=== PATIENT | female | born 1980 | race Caucasian/White ===

== ENCOUNTER 2017-01-16 15:52 | Inpatient (IN) | payer OTHER ==
--- NOTE | ~2017-01-16 | DS ---
Discharge Summary [facility] [address] [facility] [place]. [address] NAME: KATERINA ALCALA : 76 STATUS : DIS IN PAT#: [id number] AGE: 36 ADM/REG DATE : 01/16/17 MR#: [id number] REPORT SERV DATE: 01/19/17 DICTATED BY: LENNY ROBERTS DATE: 01/18/17 REPORT STATUS : Draft TRANSCRIBED BY: MODL DATE: 01/18/17 ADMISSION DATE: 01/16/2017 DISCHARGE DATE: 01/18/2017 DISCHARGE DIAGNOSES: 1. Diabetic ketoacidosis/diabetes mellitus type 2. 2. Hypothyroidism. 3. History of seizures. 4. Pneumomediastinum ruled out. CONSULTATIONS: Cardiovascular Surgery, and Romeo Hurtado NP 01/16/2017. IMAGIN. Chest x-ray, 01/16/2017. Impression: No acute cardiopulmonary abnormality. 2. Radiation water soluble contrast, 01/16/2017. Impression: No evidence of esophageal obstruction or contrast leakage. 3. Chest x-ray, 01/17/2017. Impression: No acute cardiopulmonary abnormality. LABORATORY DATA: WBC is 5.9, hemoglobin 11.8, hematocrit 32.6, and platelet count 210. Sodium is 135, potassium is 4.0, chloride is 100, CO2 is 20, BUN is 8, creatinine is 0.83, glucose is 528, magnesium is 1.7, calcium is 8.5, and phosphorus is 2.9. HOSPITAL COURSE: Please refer to history and physical dictated by Dr. Gregorio Galdamez on 01/16/2017 as well as consultation note for complete admission details. This patient is a 36-year-old female, who presented with a history of diabetes mellitus type 2, hypothyroidism, history of seizures. This patient was transferred on DKA with possible pneumomediastinum from [place], [place]. History prior to admission was, the patient stated having abdominal cramping and pain associated with nausea and vomiting. She presented at [facility], the patient was admitted. Imaging was obtained, which did show a possible pneumomediastinum with no evidence of esophageal or tracheal injury. The patient was hemodynamically stable and transferred to [facility]. She was initially started on insulin drip as well as D5 half-normal saline. The pH was 7.24, the patient was placed on diabetic ketoacidosis protocol. Baseline labs were obtained which did show diabetic ketoacidosis. Her iron gap was closed. CT imaging did show possible gastritis. Consult was placed to Dr. Barlow regarding possible pneumomediastinum. This was ruled out. Hemoglobin A1c was obtained, which was 12.1. Diabetic education was also consulted, the patient did decline as well as spouse. The patient was weaned off insulin drip. At this time, the patient is voicing understanding regarding diet and medications. She is requesting to be discharged home stating that she has a 12-hour drive, saying she already has a followup with her primary care regarding this hospitalization. The patient is in hemodynamically stable condition and will be discharged home. DISCHARGE MEDICATIONS: 1. Colace 100 mg p.o. twice daily p.r.n. Discharge Summary [address] [address] NAME: KATERINA ALCLAA : 76 STATUS : DIS IN PAT#: [id number] AGE: 36 ADM/REG DATE : 01/16/17 MR#: [id number] REPORT SERV DATE: 01/19/17 DICTATED BY: LENNY ROBERTS DATE: 01/18/17 REPORT STATUS : Draft TRANSCRIBED BY: ROBERT DATE: 01/18/17 2. Levemir 45 units subcu at bedtime. 3. NovoLog sliding scale. 4. NovoLog 10 units subcu with meals. 5. Synthroid 175 mcg p.o. daily. 6. Victoza pen 18 mg/3 mL 1.8 mg subcu daily. 7. Percocet 5 mg one p.o. every 4 hours p.r.n. for pain, #10. This discharge took greater than 30 minutes. DICTATED BY: WESTNO Germain/ROBERT Lenny Roberts NP / [id number] CC: Dar Flores M.D.
--- NOTE | ~2017-01-16 | CN ---
Consultation Report [facility] [address] [place]. [address] NAME: KATERINA ALCALA : 76 STATUS : ADM IN PAT#: [id number] AGE: 36 ADM/REG DATE : 01/16/17 MR#: [id number] REPORT SERV DATE: 01/16/17 DICTATED BY: ARTEMIO LOPEZ DATE: 01/16/17 REPORT STATUS : Draft TRANSCRIBED BY: MODL DATE: 01/16/17 CONSULT REPORT DATE OF CONSULTATION: 01/16/2017 REASON FOR CONSULTATION: Questionable pneumomediastinum. HISTORY OF PRESENT ILLNESS: This is a pleasant 36-year-old female, who lives in [place] and has been in [place], [place], visiting some family. She presented to the emergency room at [facility] with complaints of flank pain and nausea and vomiting. Her blood glucose in the emergency room was 720. She was admitted for diabetic ketoacidosis. She had a CT scan of her abdomen and pelvis which showed some questionable bowel wall thickening consistent with colitis and questionable pneumomediastinum with free air in the chest and possible esophageal tear. We spoke to the hospitalist at [facility] who reviewed the CT scan with us over the phone. The patient has been stable and was transferred here for evaluation of what was thought to be an esophageal tear. When the patient arrived, she had a chest x-ray, report which showed a chest x-ray performed today showed no lucency over the mediastinum which was apparent yesterday suggesting possible resolution of the pneumomediastinum. The patient has stable vital signs, and labs have improved with noted as below. Family is with her at the bedside. She has no complaints of chest pain, shortness of breath, abdominal pain, nausea, or vomiting. Her only complaint now is continued flank pain. PAST MEDICAL HISTORY: Significant for type 2 diabetes mellitus, hypothyroidism, and seizures. SOCIAL HISTORY: She lives in [place]. She is , with children, unemployed. FAMILY HISTORY: Reviewed and noncontributory. PAST SURGICAL HISTORY: Prior hysterectomy and removal of wisdom teeth. ALLERGIES: NO KNOWN DRUG ALLERGIES. HOME MEDICATIONS: She is on Synthroid, Victoza, Levemir, and NovoLog insulin. REVIEW OF SYSTEMS: A 10-point review of systems was obtained and is negative other than HPI. PHYSICAL EXAMINATION: VITAL SIGNS: From today temperature 99.5, heart rate 87, blood pressure 99/65, respiratory rate 16, and O2 saturation 100% on room air. GENERAL: Pleasant female, in no acute distress. Consultation Report [place] [address] [place]. [address] NAME: KATERINA ALCALA : 76 STATUS : ADM IN PAT#: [id number] AGE: 36 ADM/REG DATE : 01/16/17 MR#: [id number] REPORT SERV DATE: 01/16/17 DICTATED BY: ARTEMIO LOPEZ DATE: 01/16/17 REPORT STATUS : Draft TRANSCRIBED BY: ROBERT DATE: 01/16/17 PSYCHIATRIC: Flat affect, but talkative, pleasant. NEUROLOGIC: Alert and oriented x3. Pupils are equal, round, reactive to light and accommodation. Exhibits equal strength in bilateral upper extremities and bilateral lower extremities. HEENT: Head normocephalic and atraumatic. Sclerae clear. Nose midline with no abnormalities. Good dentition overall. NECK: Supple with no thyromegaly or lymphadenopathy. LUNGS: Clear to auscultation bilaterally with normal effort. CARDIAC: S1, S2. No murmurs, rubs, or gallops. Carotids on auscultation with no obvious bruits. ABDOMEN: Soft, nontender, with active bowel sounds. EXTREMITIES: Free of cyanosis, clubbing, or edema. LABORATORY DATA: From [facility] earlier today, white blood cell count 19.9, hemoglobin 13.1, hematocrit 39, and platelets 297. Sodium 142, potassium 3.8, chloride 108, bicarbonate 11, BUN 12, creatinine 0.8, glucose 149, INR 1.2. ASSESSMENT AND PLAN: This is a 36-year-old female with a history of type 2 diabetes, admitted to [facility] 2 days ago with nausea and vomiting. CT scan of the abdomen and pelvis showed possible colitis with questionable pneumomediastinum, concerning for esophageal tear; has been on treatment with DKA with improvement in her labs. The patient was transferred here for evaluation of pneumomediastinum. Prior to her transfer, she had a chest x-ray, which showed possible resolution of the pneumomediastinum. We will send her for a stat Gastrografin swallow evaluation to evaluate for esophageal tear; if this is negative, then she can continue on treatment for the DKA and colitis with no surgical needs. I discussed the plan of care with Dr. Galdamez who will be the attending. I updated the family at the bedside. DANIAL/ROBERT Artemio Lopez NP / [id number] CC: Gregorio Galdamez MD
--- NOTE | ~2017-01-16 | HP ---
History And Physical [place] [id number] [facility] [place]. [address] NAME: KATERINA ALCALA : 76 STATUS : ADM IN [facility]#: [id number] AGE: 36 ADM/REG DATE : 01/16/17 MR#: [id number] REPORT SERV DATE: 01/16/17 DICTATED BY: SAGAR GALDAMEZ DATE: 01/16/17 REPORT STATUS : Draft TRANSCRIBED BY: MODL DATE: 01/16/17 DATE OF ADMISSION: 01/16/2017 CHIEF COMPLAINT: Nausea and vomiting. HISTORY OF PRESENT ILLNESS: The patient is a 36-year-old white female with past medical history of type 2 diabetes, hypothyroidism, and a history of seizures, who was transferred to our facility for DKA and possible pneumomediastinum. The patient is originally from [place] and was here in [place], [place], visiting family. When two days ago, on 01/14/2017, she had developed crampy abdominal pain which was associated with nausea and vomiting as well as severe retching. She presented to [facility] down there and was found to be in DKA at that time, and was admitted to the hospital and placed on IV fluids and insulin. She had a CT scan of her abdomen and chest yesterday that showed possible colitis as well as possible pneumomediastinum with no obvious esophageal or tracheal injury. The patient was hemodynamically stable. She continued to be treated for her DKA. Today, she is transferred here for surgical evaluation as they do not have thoracic surgery there at [facility]. On arrival here, she is hemodynamically stable. She is on an insulin drip at this time as well as D5 half-normal saline. Reportedly, her last pH was 7.24 and her last glucose was in the 100s before she left [facility] over there. Also supposedly her chest x-ray this morning showed resolution of the potential pneumomediastinum. PAST MEDICAL HISTORY: 1. Type 1 diabetes. 2. History of seizures. 3. Hypothyroidism. HOME MEDICATIONS: See medication reconciliation form. ALLERGIES: NO KNOWN DRUG ALLERGIES. SOCIAL HISTORY: No tobacco, alcohol, or IV drug abuse. FAMILY HISTORY: Reviewed and negative for diabetes. REVIEW OF SYSTEMS: A 10-point review of systems is negative except as mentioned in the HPI. PHYSICAL EXAMINATION: GENERAL: No acute distress. A little confused. HEENT: Pupils are equal, round, and reactive to light. Extraocular movements are intact. Oropharynx is clear. Dry mucous membranes. NECK: Supple. Nontender. No lymphadenopathy. No thyromegaly. No jugular venous distention. LUNGS: Clear to auscultation bilaterally. CARDIOVASCULAR: Regular rate and rhythm. No murmurs, rubs, or gallops. History And Physical [address] [address] NAME: KATERINA ALCALA : 76 STATUS : ADM IN [facility]#: [id number] AGE: 36 ADM/REG DATE : 01/16/17 MR#: [id number] REPORT SERV DATE: 01/16/17 DICTATED BY: SAGAR GALDAMEZ DATE: 01/16/17 REPORT STATUS : Draft TRANSCRIBED BY: ROBERT DATE: 01/16/17 ABDOMEN: Soft, nontender, nondistended. Positive bowel sounds. No hepatosplenomegaly. EXTREMITIES: No cyanosis, clubbing, or edema. NEUROLOGIC: Alert and oriented x3. Cranial nerves intact PSYCH: Mood appropriate. LABS AND IMAGING: Pending at the time of dictation. ASSESSMENT AND PLAN: The patient is a 36-year-old female with past medical history of type 1 diabetes, hypothyroidism, and seizures, who presents here with diabetic ketoacidosis, evidence of colitis, and possible pneumomediastinum on CT scan. 1. Diabetic ketoacidosis. We will place patient on diabetic ketoacidosis protocol. She is currently on insulin drip and IV fluids. We will get a set of baseline labs here to see where we need to dictate her further diabetic ketoacidosis therapy. Once her anion gap closed, we will transition over to subcu insulin and adjust her IV fluids and electrolyte replacement as indicated. 2. Colitis. The patient had possible evidence of colitis on outside CT scan, likely viral gastroenteritis. We will get labs here as well as cultures. We will hold off on antibiotics for now. We will check a procalcitonin. 3. Pneumomediastinum. Supposedly, she had possible free air in her mediastinum on CT scan done yesterday, but seemingly has resolved on chest x-ray today. We are awaiting a chest x-ray here as well as a stat Gastrografin study. Dr. Barlow has been consulted and is following along. Likely will not need surgical intervention at this time. I appreciate his help in this patient. 4. The patient will be on deep venous thrombosis prophylaxis and gastrointestinal prophylaxis. 5. The patient is full code. ADELFO/ROBERT Sagar Galdamez MD / [id number] CC: Sagar Galdamez MD UNKNOWN
[2017-01-16] MEDS ORDERED: SYNTHROID175 MCG PO (16:09)
[2017-01-16] MEDS ORDERED: LEVEMIR SC (16:09)
[2017-01-16] MEDS ORDERED: VICTOZA18 MG/3 ML SC (16:09)
[2017-01-16] MEDS ORDERED: NOVOLOG SC ×2 (16:10)
[2017-01-16 20:59] LABS: ASCORBIC ACID (UR NOT ORDER) NEG (NEG); BILIRUBIN, URINE NEGATIVE (NEG); KETONE, URINE 80 MG/DL (NEG); LEUKOCYTE ESTERASE(NOT OR NEG (NEG); WBC (NOT ORDERED) (RFLEX) < 1 (0-5)
[2017-01-16 21:14] LABS: ALBUMIN 2.9 G/DL (3.5-5.0); ALKALINE PHOSPHATASE 96 U/L (45-117); CHLORIDE, SERUM 110 MMOL/L (96-112); GFR AFRICAN AMERICAN 94 ML/MIN (>=60); GFR NON AFRICAN AMERICAN 81 ML/MIN (>=60); PHOSPHORUS, SERUM 1.4 MG/DL (2.5-4.5); SGPT(ALT) 30 U/L (5-65); SODIUM, SERUM 128 MMOL/L (135-148); TOTAL BILIRUBIN 0.7 MG/DL (0-1.2); TOTAL PROTEIN 5.9 G/DL (6.0-8.5)
[2017-01-16 21:15] LABS: BUN (BLOOD UREA NITROGEN) 7 MG/DL (6-23); CALCIUM, SERUM 7.6 MG/DL (8.5-10.4); CO2 (CARBON DIOXIDE) 8 MMOL/L (24-34); GLUCOSE, SERUM 289 MG/DL (60-99); POTASSIUM, SERUM 3.8 MMOL/L (3.5-5.3); SGOT(AST) 27 U/L (5-40)
[2017-01-16 22:14] LABS: HEMOGLOBIN 14.1 g/dL (12.0-16.0); MEAN CORPUS HGB CONC 35.8 g/dL (32.0-36.0); MEAN CORPUSCULAR HEMOGLOB 33.3 pg (26.0-34.0); MEAN CORPUSCULAR VOLUME 92.9 fL (80-100); MEAN PLATELET VOLUME 9.2 fL (9.2-13.0); RED CELL COUNT 4.24 10/6/uL (4.0-5.6); WHITE BLOOD CELLS 11.2 10/3/uL (4.5-10.5)
[2017-01-16 22:31] LABS: HEMATOCRIT 39.4 % (36.0-48.0); PLATELET COUNT 151 10/3/uL (150-400)
[2017-01-16 22:32] LABS: MANUAL DIFF YES %
[2017-01-16 23:01] LABS: BAND NEUTROPHILS 4 %; EOSINOPHILS 1 %; EOSINOPHILS ABSOLUTE (CALC) 0.11 10/3/uL (0.0-0.53); LYMPHOCYTES 27 %; LYMPHOCYTES ABSOLUTE (CALC) 3.02 10/3/uL (0.67-4.30); MONOCYTES 3 %; MONOCYTES ABSOLUTE (CALC) 0.34 10/3/uL (0.21-1.20); NEUTROPHILS ABSOLUTE (CALC) 7.73 10/3/uL (2.02-8.40); PLATELET ESTIMATE ADQ (ADEQUATE); SEGMENTED NEUTROPHIL (0) 65 %; TOTAL NUCLEATED CELLS 100
[2017-01-17 03:52] LABS: BASOPHILS 0.2 %; BASOPHILS ABSOLUTE 0.02 10/3/uL (0.0-0.16); EOSINOPHILS 0.6 %; EOSINOPHILS ABSOLUTE 0.06 10/3/uL (0.0-0.53); HEMOGLOBIN 12.3 g/dL (12.0-16.0); IMMATURE GRANULOCYTES 0.6 %; IMMATURE GRANULOCYTES ABSOLUTE 0.06 10/3/uL (0.0-0.11); LYMPHOCYTES ABSOLUTE 3.87 10/3/uL (0.67-4.30); MEAN CORPUS HGB CONC 36.1 g/dL (32.0-36.0); MEAN CORPUSCULAR HEMOGLOB 32.8 pg (26.0-34.0); MEAN CORPUSCULAR VOLUME 90.9 fL (80-100); MEAN PLATELET VOLUME 8.9 fL (9.2-13.0); MONOCYTES 5.9 %; MONOCYTES ABSOLUTE 0.63 10/3/uL (0.21-1.20); NEUTROPHILS 56.7 %; NEUTROPHILS ABSOLUTE 6.12 10/3/uL (2.02-8.40); RBC DISTRIBUTION WIDTH 11.9 % (12.0-16.0); RED CELL COUNT 3.75 10/6/uL (4.0-5.6); WHITE BLOOD CELLS 10.8 10/3/uL (4.5-10.5)
[2017-01-17 03:55] LABS: HEMATOCRIT 34.1 % (36.0-48.0); MANUAL DIFF NO %; PLATELET COUNT 265 10/3/uL (150-400)
[2017-01-17 04:01] LABS: INTERNATIONAL NORMAL RATI 1.2 UNITS (-); PARTIAL THROMBO TIME 23.9 SEC (22.5-37.2); PROTIME (NOT ORD) 14.7 SEC (12.0-14.5)
[2017-01-17 04:14] LABS: ALBUMIN 2.7 G/DL (3.5-5.0); ALKALINE PHOSPHATASE 88 U/L (45-117); BUN (BLOOD UREA NITROGEN) 4 MG/DL (6-23); CALCIUM, SERUM 7.2 MG/DL (8.5-10.4); CHLORIDE, SERUM 114 MMOL/L (96-112); CREATININE 0.79 MG/DL (0.55-1.02); GFR AFRICAN AMERICAN 110 ML/MIN (>=60); GFR NON AFRICAN AMERICAN 95 ML/MIN (>=60); GLOBULIN 2.7 G/DL (2.5-4.1); PHOSPHORUS, SERUM 1.7 MG/DL (2.5-4.5); POTASSIUM, SERUM 3.6 MMOL/L (3.5-5.3); SGOT(AST) 22 U/L (5-40); SGPT(ALT) 30 U/L (5-65); TOTAL BILIRUBIN 0.5 MG/DL (0-1.2); TOTAL PROTEIN 5.4 G/DL (6.0-8.5)
[2017-01-17 04:28] LABS: CO2 (CARBON DIOXIDE) 18 MMOL/L (24-34); GLUCOSE, SERUM 102 MG/DL (60-99); SODIUM, SERUM 140 MMOL/L (135-148)
[2017-01-18 05:06] LABS: BASOPHILS 0.2 %; BASOPHILS ABSOLUTE 0.01 10/3/uL (0.0-0.16); EOSINOPHILS ABSOLUTE 0.06 10/3/uL (0.0-0.53); HEMATOCRIT 32.6 % (36.0-48.0); HEMOGLOBIN 11.8 g/dL (12.0-16.0); IMMATURE GRANULOCYTES 0.3 %; IMMATURE GRANULOCYTES ABSOLUTE 0.02 10/3/uL (0.0-0.11); LYMPHOCYTES 46.9 %; LYMPHOCYTES ABSOLUTE 2.78 10/3/uL (0.67-4.30); MEAN CORPUS HGB CONC 36.2 g/dL (32.0-36.0); MEAN CORPUSCULAR HEMOGLOB 33.4 pg (26.0-34.0); MEAN CORPUSCULAR VOLUME 92.4 fL (80-100); MEAN PLATELET VOLUME 9.2 fL (9.2-13.0); MONOCYTES 6.9 %; MONOCYTES ABSOLUTE 0.41 10/3/uL (0.21-1.20); NEUTROPHILS 44.7 %; NEUTROPHILS ABSOLUTE 2.65 10/3/uL (2.02-8.40); PLATELET COUNT 210 10/3/uL (150-400); RBC DISTRIBUTION WIDTH 11.7 % (12.0-16.0); RED CELL COUNT 3.53 10/6/uL (4.0-5.6)
[2017-01-18 05:09] LABS: MANUAL DIFF NO %; WHITE BLOOD CELLS 5.9 10/3/uL (4.5-10.5)
[2017-01-18 06:51] LABS: BUN (BLOOD UREA NITROGEN) 8 MG/DL (6-23); CALCIUM, SERUM 8.5 MG/DL (8.5-10.4); CHLORIDE, SERUM 100 MMOL/L (96-112); CO2 (CARBON DIOXIDE) 20 MMOL/L (24-34); CREATININE 0.83 MG/DL (0.55-1.02); GFR AFRICAN AMERICAN 104 ML/MIN (>=60); GFR NON AFRICAN AMERICAN 89 ML/MIN (>=60); SODIUM, SERUM 135 MMOL/L (135-148)
[2017-01-18 06:52] LABS: GLUCOSE, SERUM 528 MG/DL (60-99); PHOSPHORUS, SERUM 2.9 MG/DL (2.5-4.5)
[2017-01-18] MEDS ORDERED: MVI PO (08:54)
[2017-01-18] MEDS ORDERED: DSS PO (08:54)
[2017-01-18] MEDS ORDERED: PCET PO (08:55)
== END 2017-01-18 10:19 | disposition home or self-care (01) | DRG 639 ==
LOC: CVICU 15:52 → 4EA 01-17 13:11
PROVIDERS: Internal Medicine
DX: E13.10 Other specified diabetes mellitus with ketoacidosis without coma (principal); J98.2 Interstitial emphysema; A08.4 Viral intestinal infection, unspecified; Z90.710 Acquired absence of both cervix and uterus; E03.9 Hypothyroidism, unspecified; G40.909 Epilepsy, unspecified, not intractable, without status epilepticus
CPT/HCPCS: 36600; 71010; 74220; 80048; 80053; 81001; 82150; 82330; 82803; 82947; 82962; 83036; 83735; 84100; 84132; 84295; 84439; 84443; 85014; 85025; 85610; 85730; A9270-GY; C9113; J2405; J2550; J3475